=== PATIENT | male | born 1930 | race Caucasian/White ===

== ENCOUNTER 2016-09-23 06:17 | Day surgery (SDC) | payer MEDICARE ==
[~2016-09-23] VITALS: Ht 160 cm; Wt 63.2 kg
[~2016-09-23 06:17] MED LIST: LACTATED RINGERS 1,000 ML IV SCH; SODIUM CHLORIDE FLUSH 3 ML SYR IV PRN
[2016-09-23 06:36] VITALS: BP 156/81
[2016-09-23] MEDS ORDERED: LIDOCAINE 4% TOPICAL 4.5 ML SYR ONE (06:52)
[2016-09-23] MEDS ORDERED: SIMETHICONE 40 MG/0.6 ML (MYLICON DROPS) ORAL SYRINGE ONE (06:52)
[2016-09-23] MEDS ORDERED: PROPOFOL 20 ML IV ONE (07:09)
[2016-09-23] MEDS ORDERED: MIDAZOLAM 2 MG/2 ML (VERSED) VIAL ONE (07:09)
[2016-09-23] MEDS ORDERED: ALFENTANIL 500 MCG/ML (ALFENTA) 5 ML AMP IV ONE (07:09)
[2016-09-23 07:43] VITALS: BP 132/73
[2016-09-23 08:28] VITALS: BP 129/96
== END 2016-09-23 08:31 | disposition home or self-care (01) ==
LOC: ASC 06:17
PROVIDERS: ATTEND Surgery
DX: R13.10 Dysphagia, unspecified (principal); K29.30 Chronic superficial gastritis without bleeding; I10 Essential (primary) hypertension; E78.5 Hyperlipidemia, unspecified; K21.9 Gastro-esophageal reflux disease without esophagitis; E11.9 Type 2 diabetes mellitus without complications; M06.9 Rheumatoid arthritis, unspecified; Z79.82 Long term (current) use of aspirin
CPT/HCPCS: 36415; 43239; 84132; 87077; 88305; 88312; A9270; J2250; J7120

== ENCOUNTER 2016-09-25 13:38 | Outpatient (RCR) | payer MEDICARE | END 2016-09-25 15:00 | disposition home or self-care (01) | LOC: ST 13:38 | PROVIDERS: ATTEND Surgery | DX: R13.13 Dysphagia, pharyngeal phase (principal); R13.19 Other dysphagia | CPT/HCPCS: 92611; G8996; G8997; G8998 ==

== ENCOUNTER → 2016-09-25 | Outpatient (CLI) | payer MEDICARE | LOC: RAD 13:22 | PROVIDERS: ATTEND Surgery | DX: R13.19 Other dysphagia (principal) | CPT/HCPCS: 74230 ==

== ENCOUNTER → 2016-11-18 | Outpatient (CLI) | payer MEDICARE ==
[~2016-11-18] MED LIST changes: +ACET325T38 PO; +ALBU8.5H4 IH; +ALEN35TA3 PO; +ALEN70TA47 PO; +ALPH200C2 PO; +ASP81CT PO; +ASPI-586 PO; +ATOR40TA2 PO; +ATOR80TA73 PO; +CARB15DR5 RIGHT EAR; +CEPH500T PO; +CHOL100045 PO; +CHOL200014 PO; +CLOP75TA3 PO; +CLPD75T PO; +CYAN100072 PO; +FNST5T PO; +FURO20TA4 PO; +GABA600T PO; +HYDR-3702 PO; +INFL100V IV; -LACTATED RINGERS 1,000 ML IV SCH; +LEVO75TA PO; +LOSA25TA2 PO; +LVF500T PO; +MAGN250T PO; +METH10TA40 PO; +METH2.5T PO; +METO25TA60 PO; +METR500T17 PO; +MTP25TSR PO; +MV-M1CAP15 PO; +NF-CIPDEC RIGHT EAR; +NFLYR75C PO; +OMEG1CAP24 PO; +OMEG1CAP58 PO; +OMEP20TA PO; +ONDA4TAB8 PO; +POTA10CA2 PO; +POTA20TA15 PO; +POTA20TA28 PO; +RANI150T15 PO; +ROSU40TA PO; +SAXA5TAB PO; -SODIUM CHLORIDE FLUSH 3 ML SYR IV PRN; +SULF1TAB35 PO; +TERA10CA PO; +[UNRECOGNIZED DRUG - CODE] PO
--- NOTE | 2016-11-18 13:34 | Diagnostic Imaging Report ---
BARIUM SWALLOW-ESOPHAGRAM TECHNIQUE: Single-contrast esophagram was performed. INDICATION: Dysphagia with sensation of food getting stuck in the distal esophagus. COMPARISON: Esophagram from 01/28/2016. FINDINGS: The patient was administered thin barium contrast material by mouth in multiple boluses. The proximal esophagus demonstrated normal luminal distensibility and peristalsis. In the distal esophagus, fixed luminal narrowing is again seen. There appears to be mild extrinsic mass effect on the distal esophagus. The area of narrowing has smooth shouldering of the proximal aspect. No discrete hiatal hernia is identified. The thin barium contrast had mild delayed passage but freely passed through the distal esophagus. The patient was then administered a 13 mm barium pill. Upon ingesting this, the pill became stuck at the level of the distal esophageal stricture. With multiple repeat boluses of water, this pill did not pass beyond the distal esophagus in the allotted time. IMPRESSION: 1. Fixed luminal narrowing of the distal esophagus, suggestive of stricture. Stricture and luminal narrowing resulted in inability of 13 mm pill to pass from the esophagus to the stomach. This may be due to reflux esophagitis and correlation with recent endoscopy is advised. Consideration should be given for a CT chest to assess for potential extraluminal mass lesion compressing the distal esophagus. Overall, the degree of fixed luminal narrowing has not substantially changed since 01/28/2016 examination. Dictated by: Dictated on workstation # [id number]
== END ==
LOC: RAD 09:52
PROVIDERS: ATTEND Surgery
DX: R13.19 Other dysphagia (principal)
CPT/HCPCS: 74220

== ENCOUNTER → 2016-11-27 | Outpatient (CLI) | payer MEDICARE ==
--- NOTE | 2016-11-27 13:18 | Diagnostic Imaging Report ---
PROCEDURE: CT chest with and without contrast. TECHNIQUE: Multiple contiguous axial images were obtained through the chest before and after administration of intravenous contrast. INDICATION: Narrowing of the distal esophagus. Evaluation for possible extraluminal mass. COMPARISON: 08/06/2014 FINDINGS: Evaluation of the cardiomediastinal structures demonstrates mild cardiomegaly. There is no large pericardial effusion. There is diffuse calcified aortic and coronary atherosclerosis. No pathologically enlarged or morphologically abnormal adenopathy is seen within the mediastinum, luisa, nor axilla on this noncontrast exam. Esophagus is suboptimally evaluated given CT technique, but no paraesophageal masses are identified. Evaluation of the lung pozo demonstrates some subpleural fibrotic changes greatest within the mid and lower lung pozo. There is no focal consolidation, pleural effusion, nor pneumothorax. No pulmonary nodules or masses are identified. Bony structures show age-related degenerative changes. No lytic or blastic bony lesions are identified. Included portions of the upper abdomen are unremarkable as well. IMPRESSION: 1. No paraesophageal soft tissue masses are identified. 2. No other acute cardiopulmonary process. 3. Interstitial lung disease greatest within the bilateral mid and lower lung pozo. 4. Diffuse calcified aortic and coronary atherosclerosis. Dictated by: Dictated on workstation # [id number]
== END ==
LOC: RAD 11:43
PROVIDERS: ATTEND Surgery
DX: K22.2 Esophageal obstruction (principal); I10 Essential (primary) hypertension
CPT/HCPCS: 36415; 71270; 82565; 84520; Q9967

== ENCOUNTER 2016-12-09 07:56 | Day surgery (SDC) | payer MEDICARE ==
[~2016-12-09] VITALS: Ht 160 cm; Wt 61.8 kg
[2016-12-09] MEDS ORDERED: LACTATED RINGERS 1,000 ML IV SCH (08:36)
[2016-12-09] MEDS ORDERED: SODIUM CHLORIDE FLUSH 3 ML SYR IV PRN (08:36)
[2016-12-09 08:55] VITALS: BP 167/92
[2016-12-09] MEDS ORDERED: MIDAZOLAM 2 MG/2 ML (VERSED) VIAL ONE (09:31)
[2016-12-09] MEDS ORDERED: PROPOFOL 20 ML IV ONE (09:31)
[2016-12-09] MEDS ORDERED: ALFENTANIL 500 MCG/ML (ALFENTA) 5 ML AMP IV ONE (09:31)
[2016-12-09] MEDS ORDERED: SIMETHICONE 40 MG/0.6 ML (MYLICON DROPS) ORAL SYRINGE ONE (10:34)
[2016-12-09] MEDS ORDERED: LIDOCAINE 4% TOPICAL 4.5 ML SYR ONE (10:35)
[2016-12-09 12:40] VITALS: BP 162/84
--- NOTE | 2016-12-09 13:28 | OPERATIVE REPORT ---
DATE OF OPERATION: 12/09/2016 PRE-OPERATIVE DIAGNOSIS: Persistent dysphagia to solid foods and abnormal narrowing of distal esophagus on barium swallow. POST-OPERATIVE DIAGNOSIS: Mild chronic esophagitis with normal upper endoscopy otherwise. OPERATIVE PROCEDURE: Esophagogastroduodenoscopy with biopsy and balloon dilatation of distal esophagus to 18 mm. SURGEON: Robert Hinds MD PLATFORM SOFTWARE ENGINEER: Nabil Bautista MD ANESTHESIA: IV conscious sedation plus topical oropharyngeal with Monitored Anesthesia Services POSITION: Semi-recumbent, slight left rotation ESTIMATED BLOOD LOSS: Minimal INDICATIONS: This patient had persistent dysphagia despite lack of significant stricture noted on previous endoscopies. However, barium swallow showed a slight narrowing of the distal esophagus and barium tablet lodged in this location, confirming partial mechanical obstruction. Therefore it is proposed to re-scope the patient at this time and proceed with balloon dilatation of the distal esophagus. OPERATIVE NOTE: Following satisfactory induction of analgesia a bite block was inserted per os. The gastroscope was inserted through the bite block and advanced to the oropharynx. The vocal cords, pharynx, and larynx appeared normal. The patient was allowed to swallow the scope, which was advanced through the esophagus, stomach and duodenum to the second potion, including retroflexed view of the gastric fundus. Sample Preparation Supervisor photographs were obtained. The proximal esophagus, stomach, duodenal bulb and duodenum appeared normal. The patient was noted to have some mild chronic debris within the esophageal lumen distally with a normal Z-line at 35 cm. Using cold biopsy forceps, multiple biopsies of this area were obtained. Good hemostasis was noted. Next the balloon was advanced through the channel of the scope into the stomach. The scope and balloon were withdrawn to allow the balloon to be centered over the Z-line and the balloon inflated under direct vision to 4 atmospheres and held in place for 2-1/2 minutes. The balloon was then deflated and withdrawn into the scope channel. Inspection revealed no evidence of any tearing of the mucosa and no bleeding. Next the scope was advanced into the stomach and the balloon deployed and withdrawn to center again as noted above. This time the balloon was inflated to 7 atmospheres (18 mm) and held in place for 2-1/2 minutes under direct vision. The balloon was then deflated and withdrawn into the scope. There was a small linear tear noted in the distal esophageal mucosa with slight oozing. This was observed for several minutes and appeared to slow down, but not completely stop. At that point a clip was applied across the area of the oozing. However, the clip did not engage the mucosa due to the angle and was withdrawn. At this point the bleeding had ceased, and on further observation no additional bleeding. Therefore I did not to proceed with additional clip deployment. Excess CO2 was evacuated and the scope removed. The patient tolerated the procedure well and transferred to recovery in stable condition. RECOMMENDATIONS: The patient is to maintain liquid diet only for the next 3 days, then to resume soft diet with small bites for the following week. Follow up hematocrit check in 2 days. The patient is to return for follow up on biopsy results. The patient to avoid nonsteroidal medications for at least 1 week.
== END 2016-12-09 12:44 | disposition home or self-care (01) ==
LOC: ASC 07:56
PROVIDERS: ATTEND Surgery
DX: K22.10 Ulcer of esophagus without bleeding (principal); K22.2 Esophageal obstruction; B37.81 Candidal esophagitis
CPT/HCPCS: 36415; 43239; 43249; 84132; 88305; 88312; A9270; C1726; J2250; J7120

== ENCOUNTER 2016-12-12 13:34 | Emergency (ER) | payer MEDICARE ==
[~2016-12-12] VITALS: Ht 162.6 cm; Wt 63.0 kg
--- NOTE | 2016-12-12 14:00 | NUR ---
While assessing patient he informed me that the substernal chest discomfort happens before he has the dry heaves and before anything starts he gets the hiccups. Reported to Dr. Sun
[2016-12-12] MEDS ORDERED: NS IV 500 ML 500 ML IV SCH (14:10)
[2016-12-12] MEDS ORDERED: LORazepam 2 MG/ML (ATIVAN) 1 ML VIAL IV ONE (14:10)
[2016-12-12 14:33] LABS: BASOPHILS % (AUTO) 0 % (0-2); EOSINOPHILS # (AUTO) 0.2 10^3uL; EOSINOPHILS % (AUTO) 2 % (0-4); LYMPHOCYTES # (AUTO) 1.5 X10^3; MEAN CORPUSCULAR HEMOGLOBIN 30.9 PG (26.0-34.0); MEAN CORPUSCULAR HGB CONC 34.6 g/dL (31.0-37.0); MEAN CORPUSCULAR VOLUME 89 FL (80-100); MEAN PLATELET VOLUME 9.8 FL (6.0-9.5); MONOCYTES # (AUTO) 1.2 X10^3; MONOCYTES % (AUTO) 13 % (3-11); NEUTROPHILS # (AUTO) 6.7 X10^3; NEUTROPHILS % (AUTO) 70 % (51-67); PLATELET COUNT 286 10^3uL (150-450); WHITE BLOOD COUNT 9.67 10^3uL (4.0-11.0)
[2016-12-12 14:43] LABS: ALBUMIN 3.9 g/dL (3.4-5.0); ANION GAP 13.2 MEQ/L (3-15); TOTAL PROTEIN 7.6 g/dL (6.4-8.5)
[2016-12-12] MEDS ORDERED: ATOR80TA PO (14:51)
[2016-12-12] MEDS ORDERED: KETOROLAC 30 MG/ML (TORADOL) 1 ML VIAL IV ONE (15:25)
[2016-12-12 16:21] VITALS: BP 161/97
== END 2016-12-12 16:12 | disposition home or self-care (01) ==
LOC: ED 13:35
DX: F41.1 Generalized anxiety disorder (principal); R11.10 Vomiting, unspecified; R73.9 Hyperglycemia, unspecified
CPT/HCPCS: 36415; 80053; 83690; 85025; 96361; 96374; 99283; J2060; J7040; 99282